=== PATIENT | male | born 1990 | race Caucasian/White ===

== ENCOUNTER 2022-06-09 12:27 | Outpatient (CLI) | payer BC, SELFPAY ==
[2022-06-09 12:39] VITALS: BP 131/91; PULSE 78; RESP 20; TEMP 36.7; O2SAT 100
--- NOTE | 2022-06-09 13:11 | DI.RAD_ITS ---
Exam(s) XR PAIN CLINIC LUMBAR SP 2V EXAM: XR PAIN CLINIC LUMBAR SP 2V CLINICAL HISTORY: Dx: Lumbar Spondylosis. TECHNIQUE: Fluoroscopy was provided for the referring physician for guidance with performing pain cl inic injection procedure. COMPARISON: No exams were available for comparison FINDINGS: Please see procedure note for details. Fluoro time: 53.8 seconds RADIATION DOSE DELIVERED: estefania Junior=8.32 mGy
[2022-06-09] MEDS: Bupivacaine 0.5% Pres-Free 10 ML VIAL IJ (13:15)
[2022-06-09] MEDS: Omnipaque 240 MG/ML 50 ML BTL IJ (13:18)
[2022-06-09 13:21] VITALS: BP 146/92; PULSE 82; RESP 18; O2SAT 100
--- NOTE | 2022-06-14 09:18 | PDOC.PAIN ---
Date of service: 06/09/22 Time of Service: 13:30 Pain Clinic Procedure Note Procedure Note Procedure Note: Lumbar/Sacral Medial Branch Blocks DIOR WU has been referred to the [facility] for lumbar/sacral medial branch blocks. COMMENTS: Ipreviously evaluated him in our clinic on 01/13/2022. His symptoms have not changed. Dx: Lumbosacral spondylosis without myelopathy Pre-procedure pain VAS = 3/10 Patient was interviewed and the medical record reviewed. There were no medical, pharmacologic, radiographic or other structural contraindications to attempting fluoroscopically guided local anesthetic lumbar/sacral medial branch blocks. Risks and expected side effects as well as potential benefit of the procedure were reviewed and voiced concerns addressed. The printed consent form was signed and witnessed. Standard time-out procedure was performed. Patient was placed in the prone position on the fluoroscopy table and automated blood pressure cuff and pulse oximeter applied. The skin entry points for approaching the anatomic target points of the segmental medial branches of bilateral L3-L5 were identified with fluoroscopy and marked. Following thorough Chlorhexadine preparation of the skin and draping and 1% lidocaine infiltration of the skin entry points and subcutaneous tissues, a 22 gauge spinal needle was placed under fluoroscopic guidance down on to the target point for each respective segmental medial branch.Position was confirmed in A/P, oblique and lateral views with 0.25ml of omnipaque 240. At this point I injected 0.5ml of 0.5% Bupivacaine at each segmental sensory nerve. Vital signs were stable throughout the procedure and were as recorded in the docflowsheet by the nursing staff. Follow up plans and appointments were discussed and was instructed to keep careful note of how the usual pain was modified by these injections. Specifically was asked to keep a pain diary for the next 4 hours using a numeric pain scale of 0-10 and report these results at the follow-up visit. Post procedure instruction was given as documented in the nursing documentation and having met discharge criteria. Patient was discharged from the [facility]. Based on the medial branches blocked today, if the patient has adequate relief and we are able to proceed to radiofrequency ablation, the treatment should result in the denervation of the bilateral L4-L5 and L5-S1 FACET JOINTS. We would expect to denervate a total of 4 facets during the radiofrequency ablation. COMMENTS: No complications. Post-procedure pain VAS was 1/10 Celestine Ellsworth DO, MPH [facility] CC:
== END 2022-06-09 12:28 | disposition home or self-care (01) ==
LOC: PC 12:27
PROVIDERS: Visit Provider Preventive Medicine Occupational Medicine
DX: M47.817 Spondylosis without myelopathy or radiculopathy, lumbosacral region (principal)
CPT/HCPCS: 64493; 64494; 72100; Q9967

== ENCOUNTER 2022-06-23 10:25 | Outpatient (CLI) | payer BC, SELFPAY ==
--- NOTE | 2022-06-23 06:00 | DI.RAD_ITS ---
Exam(s) XR PAIN CLINIC LUMBAR SP 2V EXAM: XR PAIN CLINIC LUMBAR SP 2V CLINICAL HISTORY: Dx: Lumbar Spondylosis TECHNIQUE: 2D and realtime digital imaging was performed. CONTRAST MATERIAL: Refer to procedure report. COMPARISON: No exams were available for comparison FINDINGS: Fluoroscopy was provided for Dr. Ellsworth during the performance of a bilateral lumbar medial branch blo ck. Please refer to the procedure report for complete details. Ka,r=10.9 mGy IMPRESSION:
[2022-06-23 10:59] VITALS: BP 132/81; PULSE 97; RESP 20; TEMP 36.6; O2SAT 99
[2022-06-23 11:43] VITALS: BP 127/77; PULSE 91; RESP 16; O2SAT 100
[2022-06-23] MEDS: Lidocaine 2% Pres-Free 5 ML VIAL IJ (11:51)
[2022-06-23] MEDS: Omnipaque 240 MG/ML 50 ML BTL IJ (11:51)
--- NOTE | 2022-06-23 14:30 | PDOC.PAIN ---
Date of service: 06/23/22 Time of Service: 12:00 Pain Clinic Procedure Note Procedure Note Procedure Note: Lumbar/Sacral Medial Branch Blocks DIOR WU has been referred to the [facility] for lumbar/sacral medial branch blocks. COMMENTS: He did exceedingly well with his LMBBs on 06/14/22 Dx: Lumbosacral spondylosis without myelosis Pre-procedure pain VAS was 4/10 Patient was interviewed and the medical record reviewed. There were no medical, pharmacologic, radiographic or other structural contraindications to attempting fluoroscopically guided local anesthetic lumbar/sacral medial branch blocks. Risks and expected side effects as well as potential benefit of the procedure were reviewed and voiced concerns addressed. The printed consent form was signed and witnessed. Standard time-out procedure was performed. Patient was placed in the prone position on the fluoroscopy table and automated blood pressure cuff and pulse oximeter applied. The skin entry points for approaching the anatomic target points of the segmental medial branches of bilateral L3-L5 were identified with anfluoroscopy and marked. Following thorough Chlorhexadine preparation of the skin and draping and 1% lidocaine infiltration of the skin entry points and subcutaneous tissues, a 25 gauge 3.5 spinal needle was placed under fluoroscopic guidance down on to the target point for each respective segmental medial branch.Position was confirmed in A/P, oblique and lateral views with 0.25ml of omnipaque 240. At this point I injected 0.5ml of 2% Lidocaine. Vital signs were stable throughout the procedure and were as recorded in the docflowsheet by the nursing staff. Follow up plans and appointments were discussed and was instructed to keep careful note of how the usual pain was modified by these injections. Specifically was asked to keep a pain diary for the next 4 hours using a numeric pain scale of 0-10 and report these results at the follow-up visit. Post procedure instruction was given as documented in the nursing documentation and having met discharge criteria. Patient was discharged from the [facility]. Based on the medial branches blocked today, if the patient has adequate relief and we are able to proceed to radiofrequency ablation, the treatment should result in the denervation of the bilateral L4-L5 and L5-S1 FACET JOINTS. We would expect to denervate a total of 4 facets during the radiofrequency ablation. COMMENTS: Post-procedure pain VAS was 1/10. Celestine Ellsworth DO, MPH [facility] CC: Clarice Roberson
== END 2022-06-23 10:26 | disposition home or self-care (01) ==
LOC: PC 10:26
PROVIDERS: PCP Internal Medicine; Visit Provider Preventive Medicine Occupational Medicine
DX: M47.817 Spondylosis without myelopathy or radiculopathy, lumbosacral region (principal)
CPT/HCPCS: 64493; 64494; 72100; Q9967